=== PATIENT | male | born 1990 | race African-American/Black ===

== ENCOUNTER 2018-02-17 20:35 | Inpatient (IN) | payer OTHER ==
[~2018-02-17 20:35] MED LIST: Iopamidol-370 76% 500 ML 1 ML ONE
[2018-02-17] MEDS ORDERED: Adacel (T-DAP) 0.5 ML SYRINGE ONE (20:58)
[2018-02-17] MEDS ORDERED: Fentanyl 100 MCG/2 ML VIAL ONE ×3 (20:58→23:59)
[2018-02-17] MEDS ORDERED: CEFAZOLIN 2 GM/50 ML BAG ONE ×2 (21:07→21:09)
[2018-02-17] MEDS ORDERED: CEFAZOLIN 1 GM VIAL ONE (21:07)
[2018-02-17 21:22] LABS: #Basophils 0.1 thou/uL (0.0-0.2); #Lymphocytes 2.2 thou/uL (1.20-3.40); #Monocytes 0.9 thou/uL (0.11-0.59); #Neutrophils 8.4 thou/uL (1.40-6.50); %Basophils 0.9 % (0.0-1.0); %Eosinophils 0.2 % (0.0-10.0); %Lymphocytes 18.6 % (21.0-51.0); %Monocytes 7.6 % (0.0-10.0); %Neutrophils 72.8 % (42.0-75.0); Hemoglobin 13.5 g/dL (14.0-18.0); Mean Corpuscular HGB CONC 33.3 g/dL (32.0-36.0); Mean Corpuscular Hemoglobin 28.9 pg (27.0-31.0); Mean Corpuscular Volume 86.7 fL (78.0-98.0); Mean Platelet Volume 7.6 fL (7.4-10.4); Platelet Count 225 thou/uL (130-400); RBC Distribution Width 12.1 % (11.5-14.5); Red Blood Cell (RBC) Count 4.65 mill/uL (4.70-6.10); White Blood Cell (WBC) Count 11.6 thou/uL (4.8-10.8)
[2018-02-17 21:28] LABS: INR-International Normal Ratio 1.1; Prothrombin Time 14.5 SEC (12.0-14.7)
[2018-02-17] MEDS ORDERED: Gentamicin Sulfate 300 MG in Sodium Chloride 0.9% 100 ML IVPB SCH (21:30)
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
[2018-02-17 21:45] LABS: ALT (SGPT) 30 U/L (8-55); AST (SGOT) 27 U/L (5-34); Albumin 3.7 g/dL (3.5-5.0); Alkaline Phosphatase 46 U/L (40-150); Anion Gap 11 mmol/L (10-20); BUN (Urea Nitrogen) 16 mg/dL (8.9-20.6); Bilirubin, Total 0.4 mg/dL (0.2-1.2); Calc. Creatinine Clearance 0 mL/min (70-130); Calcium 8.8 mg/dL (7.8-10.44); Carbon Dioxide 25 mmol/L (22-29); Chloride 103 mmol/L (98-107); Estimated GFR-MDRD Greater than 90; Globulin 3.2 g/dL (2.4-3.5); Glucose 100 mg/dL (70-105); Potassium 3.3 mmol/L (3.5-5.1); Protein, Total 6.9 g/dL (6.0-8.3); Sodium 136 mmol/L (136-145)
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
[2018-02-17] MEDS ORDERED: Bupivacaine HCl 0.5%/Epinephrine 1:200,000/PF 30 ml Vial ONE (23:20)
[2018-02-17] MEDS ORDERED: Bacitracin Zinc Ointment 30 gm TUBE ONE (23:21)
[2018-02-17] MEDS ORDERED: Sodium Chloride 0.9% 80 ML ONE (23:21)
[2018-02-17] MEDS ORDERED: Midazolam HCl 2 mg/2 ml Vial ONE (23:59)
[2018-02-18] MEDS ORDERED: Bupivacaine PF 0.5% 30 ML VIAL ONE (00:29)
[2018-02-18] MEDS ORDERED: Succinylcholine Chloride 20 MG/ML 10 ml SYRINGE FS ONE (04:00)
[2018-02-18] MEDS ORDERED: Ketorolac Tromethamine 30 MG/ML VIAL ONE (04:00)
[2018-02-18] MEDS ORDERED: PROPOFOL 200 MG/20 ML VIAL ONE (04:00)
[2018-02-18] MEDS ORDERED: Lidocaine 1% PF 5 ML VIAL ONE (04:00)
[2018-02-18] MEDS ORDERED: PHENYLEPHRINE-NS 100 MCG/ML 10 ML SYRINGE ONE (04:00)
[2018-02-18] MEDS ORDERED: Promethazine HCl 25 MG/ML VIAL IM PRN (04:03)
[2018-02-18] MEDS ORDERED: Ondansetron HCl/PF 4 MG/2 ML Vial IVP PRN (04:03)
[2018-02-18] MEDS ORDERED: Promethazine HCl 25 MG/ML VIAL SLOW IVP PRN (04:03)
[2018-02-18] MEDS ORDERED: Bacitracin Zinc Ointment 30 gm TUBE ONE (04:04)
[2018-02-18] MEDS ORDERED: Ondansetron PF 4 MG/2 ML Vial IV PRN (04:49)
[2018-02-18] MEDS ORDERED: traMADol HCl 50 MG TAB PO PRN (04:49)
[2018-02-18] MEDS ORDERED: Milk Of Magnesia 30 ML UDCUP PO PRN (04:49)
[2018-02-18] MEDS ORDERED: Bisacodyl 10 MG SUPP PR PRN (04:49)
[2018-02-18] MEDS ORDERED: Meperidine HCl/PF 25 MG/ML VIAL IM PRN (04:54)
[2018-02-18] MEDS ORDERED: Communication Order-Pharmacy FS SCH (05:00)
[2018-02-18] MEDS ORDERED: Fentanyl 100 MCG/2 ML VIAL ONE (05:05)
[2018-02-18] MEDS: Ketorolac Tromethamine 30 MG/ML VIAL IVP SCH ×3 (06:02→18:16)
[2018-02-18] MEDS: Morphine 2 MG/ML SYRINGE IVP PRN ×2 (06:03→19:56)
--- NOTE | 2018-02-18 08:12 | RAD ---
LEFT HAND 2 VIEWS: HISTORY: ORIF. COMPARISON: Hand radiographs 02/17/2018. FINDINGS: Multiple spot fluoroscopic images were obtained for surgical use. IMPRESSION: Continuous fluoro time: 124 seconds. POS: [facility]
[2018-02-18] MEDS: Aspirin 81 mg Enteric Coated Tablet PO SCH ×2 (08:48→20:03)
[2018-02-18] MEDS ORDERED: TETANUS AND DIPHTHERIA TOX/PF 0.5 ML DISP.SYRIN IM SCH (09:00)
[2018-02-18 09:26] VITALS: BMI 27.5
[2018-02-18] MEDS: HYDROcodone/Acetaminophen 5/325 mg Tablet PO PRN ×3 (10:04→19:56)
--- NOTE | 2018-02-18 15:15 | OP ---
DATE OF PROCEDURE: 02/18/2018 PREOPERATIVE DIAGNOSES: 1. Grade 1 open fracture, small finger metacarpal, six fragments. 2. Flap wound 6 cm total. 3. Possible superficial ulnar nerve segment loss, which was proven to be 2 cm. PROCEDURES PERFORMED: 1. Right leg. a. Wound debridement. b. Wound closure, 4 cm right leg. 2. Left hand. a. C-arm supervision. b. Wound debridement down to including bone. c. Open fracture and debridement with removal of material associated with open fracture. d. Rotational flap for final covers 2.0 x 1.0 cm, left hand. e. Open reduction and internal fixation complex of right small finger metacarpal shaft FX distal to the intra-articular joint of the capital with hamate and 5th metacarpal to mount a bone graft using a putty and wound closure. SPECIMENS SENT TO LAB: Skin edges. BLOOD LOSS: 20 mL. TOURNIQUET TIME: 120 minutes in the left upper extremity, right lower extremity 8 minutes. Again, no true dirt particles was seen in this wound, where it was suspected it was possibly type 2 wound, but showed to be type 1 as well. DESCRIPTION OF PROCEDURE: After successful general endotracheal anesthesia, the limb was prepped and draped. The patient then underwent time-out of the procedure, appropriate to include identification of lack of beta jacoby usage in this case. The patient then had the wounds prepped and draped simultaneously, tourniquet applied high on arm in case skin graft needed for this site. The patient had the limb exsanguinated at the left upper extremity which we approached first because it had the most damage. We clearly saw the patient had the angulation clinically and radiographically in the frontal-sagittal plane, marked comminution with one large fragment coming off the distal half of the phalanx, and one portion extended from the other segment. The patient then had the wounds completely exposed, beginning with a midlateral incision because this was the pattern of the injury, extending this dorsally about 2 cm distal and 2 cm proximal. The extended site of exposure of the small finger and ring finger. It was here that we saw contamination, but the contamination was not down to the bone, only to the skin, dermis, and epidermis had retained any foreign bodies. For this reason, the patient underwent wide debridement of thenar muscle that was exposed, wide debridement of the path pattern and this included debridement down to include the bone as well as removal all material, so the open fracture could be visualized. The patient had a flap about 2.1 x 2 x 1.5 cm, which could be used for rotational flap later if necessary. Then, the patient had the incision go through skin, subcutaneous tissue, where we then began to debride the edges of the flap that were most denuded, they did not feel to be viable, this created a bigger defect to include one on the palm, where preoperative exam showed normal two-point discrimination in the radial ulnar aspect of the extremity. Now, with the tourniquet inflated, we debrided muscle that was dark and noncontractile in the hypothenar area knowing that the nerves were intact clinically before the operation began. Then, we were able to establish that the fracture fragment had six large fragments and for that reason, the both prepped limbs were prepared after this entailed deep debridement for irrigation. 5 L of normal saline was then used on the fracture site, where we visualized the fracture and during visualization, we saw a distinct zone of demarcation between the subcutaneous tissue damage and the almost 6 cm total flap that was from the hypothenar and hypothenar palmar skin junction. We also could clearly see that the patient had 6 fracture lines, going longitudinal to proximal fragment, and the distal fragment had two fracture lines, then there was a line between leaving no more than at least 6 or 7 part fracture depending on adjustment. We then individually visualized the fragments debrided down with a curette, saw, that the periosteum was still intact primarily indicative of fracture, but these were not open or lightly grazed with this situation. Once we finished the irrigation, then we began provisional fixation using base of the metacarpal transverse K-wire that held 4 of the fragments together, two other fragment held freelance with K-wire and then we incorporated later with the plate. Then finally, we were able to establish this using the K-wire down the shaft to keep left and we established excellent rotation that would be practical for utilization of the hand. The fracture fragments were clear, then we began to rotate this appropriately to the side, and then the patient underwent the next phase after removal of material as well as open fracture, C-arm supervision, and wound debridement, we began with the ORIF of the complex small finger fracture. This fracture required traction multiple times to make sure there were no intra-articular loose bodies. We did all that, and then was able to provide fixation augmented by the 0.035 K-wire longitudinally. The patient also then had the 2.0 plate brought to the field, which was once a Y shaped on the end, cut one if the limbs off, placed it over the bone and the most proximal screw was then placed following the second most distal screw holding appropriate reduction of all fracture fragments' tension and pace. Then, once we had done this, we now had at least a bridging plate intact and began consider other constructs. We then placed other two screws distally, across the fracture line placed two screws proximally, and then we were able to remove the base K-wire without loss of fracture continuity. We then placed the lag technique at 90 degrees oriented to primary screw and plate line at the base of both the distal fracture fragment, where we held the piece in place given difficulty in reduction as well as the proximal aspect, where there were 6 fracture fragments, we had placed screws in three different fragment pairs. The fracture was stable now. The length was adjusted with 2 screws and we then began with the consideration of bone graft. We first put a moist sponge in this area because tourniquet was not inflated. We obtained hemostasis and then addressed the lower extremity. While staying sterile, the right lower extremity while being prepped and draped, we then exsanguinated the limb, inflated the tourniquet to 300 mmHg and then we were able to extend both with a 2 cm incision about 1 cm proximal and distal, saw a small amount of debris, black particulate matter, removed this and then irrigated each with 3 L of normal saline where they communicated. Then, we closed this wound to drain at the time of leaving the room, small Hemovac with interrupted 3-0 nylon in a simple pattern. Following this, we placed dressing on this steriley, turned attention back to the wound. The patient was debrided some of the wound edges and found that we had lost slightly more tissue than expected despite the fact it was a grade 1 to 2 wound. We then completed the debridement, rotated the flap that was palmar and appeared to be most involved and debrided of all denuded area, especially with the tourniquet deflated. We then closed as much as we could of the patient's primary wound without undue tension, which then totaled about 16 cm with the flap. We then prepared the flap to rotate it into the defect, which was done using the classical method of . The patient had closed complete over the drain, drain stayed in place, the patient got 20 mL of injection in the upper extremity with Marcaine and 10 mL in the lower extremity without epinephrine. Bulky dressing was applied along with a sugar tong with a long and short-arm splint with the wrist and metacarpophalangeal/proximal phalangeal and distal phalangeal joints in position of function. Bulky dressing was applied along with the short-arm splint. The patient left the operating room without evidence of anesthetic or operative complication. Job ID: [id number]
[2018-02-18] MEDS ORDERED: Enoxaparin Sodium 30 MG/0.3 ML SYRINGE SC SCH (19:00)
[2018-02-18 19:18] LABS: Hemoglobin 12.5 g/dL (14.0-18.0); Mean Corpuscular HGB CONC 34.1 g/dL (32.0-36.0); Mean Corpuscular Hemoglobin 29.8 pg (27.0-31.0); Mean Corpuscular Volume 87.5 fL (78.0-98.0); Mean Platelet Volume 7.5 fL (7.4-10.4); Platelet Count 183 thou/uL (130-400); RBC Distribution Width 12.3 % (11.5-14.5); Red Blood Cell (RBC) Count 4.19 mill/uL (4.70-6.10)
[2018-02-18 19:38] LABS: Lymphocytes 27 % (21-51); MDiff Complete? YES; Monocytes 7 % (0-10); Neutrophil 66 % (42-75); PLT Morphology Comment Appears Adequate; Polychromasia SLIGHT = 2-3 cells (100X) (0-2/hpf)
--- NOTE | 2018-02-18 20:14 | RAD ---
RIGHT FEMUR TWO VIEWS: 02/18/2018 PROVIDED CLINICAL HISTORY: Right thigh hematoma with quadriceps rupture. FINDINGS: There is no evidence for fracture or other acute osseous abnormality. If there is persistent clinical concern, conservative management and follow-up imaging are advised. IMPRESSION: As above. POS: [facility]
[2018-02-18] MEDS ORDERED: Meperidine HCl/PF 25 MG/ML VIAL SLOW IVP PRN (22:07)
[2018-02-19] MEDS: Morphine 2 MG/ML SYRINGE IVP PRN (00:16)
[2018-02-19] MEDS: Ketorolac Tromethamine 30 MG/ML VIAL IVP SCH ×2 (00:17→07:12)
[2018-02-19] MEDS: HYDROcodone/Acetaminophen 5/325 mg Tablet PO PRN ×4 (00:18→18:15)
[2018-02-19] MEDS ORDERED: Ketorolac Tromethamine 30 MG/ML VIAL IVP PRN (04:54)
[2018-02-19 06:38] LABS: #Basophils 0.1 thou/uL (0.0-0.2); #Monocytes 0.8 thou/uL (0.11-0.59); #Neutrophils 3.2 thou/uL (1.40-6.50); %Basophils 0.8 % (0.0-1.0); %Eosinophils 0.6 % (0.0-10.0); %Lymphocytes 32.6 % (21.0-51.0); %Monocytes 13.3 % (0.0-10.0); %Neutrophils 52.7 % (42.0-75.0); Mean Corpuscular HGB CONC 33.6 g/dL (32.0-36.0); Mean Corpuscular Hemoglobin 29.6 pg (27.0-31.0); Mean Platelet Volume 7.6 fL (7.4-10.4); Platelet Count 175 thou/uL (130-400); RBC Distribution Width 12.2 % (11.5-14.5); Red Blood Cell (RBC) Count 4.07 mill/uL (4.70-6.10); White Blood Cell (WBC) Count 6.2 thou/uL (4.8-10.8)
[2018-02-19] MEDS: Aspirin 81 mg Enteric Coated Tablet PO SCH ×2 (08:43→20:17)
--- NOTE | 2018-02-19 10:05 | MRI ---
MRI RIGHT LOWER EXTREMITY WITHOUT CONTRAST: HISTORY: Quadriceps tendon rupture. COMPARISON: CT from 02/17/2018. FINDINGS: BONES: No fracture. No malalignment. No marrow infiltrative process. MUSCLES/TENDONS: There is a grade 2 partial tear of the proximal myotendinous junction of the direct head of the rectus femoris muscle, with feathery edema, as well as partial tearing of the tendon. T his is best seen on axial image 31 of series 6. There is also a grade 1 injury of the indirect head of the rectus femoris. The proximal-most fibers appear to be intact. There is a grade 2 partial tear of the muscle of the vastus lateralis. There is a grade 2 partial te ar of the sartorius, mid fibers, myotendinous junction. There is also a feathery grade 1 injury of t he gracilis. There is a grade 2 partial tear of the adductor longus muscle. All this appears to be from a direct contusion. There is a grade 2 partial tear of the musculature of the semitendinosis with a grade 1 injury of the semimembranosus. There is a grade 1 injury of the biceps femoris longhead myotendinous junction. N o full-thickness tear. No avulsion is appreciated. SOFT TISSUES: There is medial thigh soft tissue swelling. IMPRESSION: 1. Mix of grade 1 and 2 myotendinous and intrammusclar injuries of the anterior, medial and posterio r compartments of the thigh, as described. 2. No fracture. 3. No full-thickness rupture. POS: [facility]
[2018-02-20] MEDS: HYDROcodone/Acetaminophen 5/325 mg Tablet PO PRN ×2 (07:26)
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
[2018-02-20] MEDS: Aspirin 81 mg Enteric Coated Tablet PO SCH (09:36)
[2018-02-20 11:27] VITALS: BP 145/83; TEMP 97.3
== END 2018-02-20 14:25 | disposition home or self-care (01) | DRG 465 ==
LOC: ERS 20:35 → SDC/OP 23:52 → SURG A 02-18 04:49
PROVIDERS: ADMIT Orthopaedic Surgery Hand Surgery; ATTEND Orthopaedic Surgery Hand Surgery
PROC: 0PBP0ZZ Excision of Right Metacarpal, Open Approach (ICD-10-PCS; principal; 2018-02-18)
PROC: 0JBL0ZZ Excision of Right Upper Leg Subcutaneous Tissue and Fascia, Open Approach (ICD-10-PCS; 2018-02-18)
PROC: 0PSQ04Z Reposition Left Metacarpal with Internal Fixation Device, Open Approach (ICD-10-PCS; 2018-02-18)
PROC: 0PU Upper Bones, Supplement (ICD-10-PCS; 2018-02-18)
PROC: 0HXGXZZ Transfer Left Hand Skin, External Approach (ICD-10-PCS; 2018-02-18)
DX: S62.307B Unspecified fracture of fifth metacarpal bone, left hand, initial encounter for open fracture (principal); S81.831A Puncture wound without foreign body, right lower leg, initial encounter; V03.19XA Pedestrian with other conveyance injured in collision with car, pick-up truck or van in traffic accident, initial encounter; Y93.55 Activity, bike riding; Y92.410 Unspecified street and highway as the place of occurrence of the external cause; S76.211A Strain of adductor muscle, fascia and tendon of right thigh, initial encounter; S76.811A Strain of other specified muscles, fascia and tendons at thigh level, right thigh, initial encounter
CPT/HCPCS: 36415; 70450; 71260; 72125; 74177; 76001; 80053; 85025; 85610; 85730; 90471; 90715; 96365; 96367; 96375; 96376; C1713; G0390; G8978-GP-CK; G8979-GP-CI; J0670; J0690; J1580; J1650; J1885; J2001; J2250; J2270; J2704; J3010; J3490; J7050; Q9967; S0020